=== PATIENT | female | born 1960 | race Caucasian/White ===

== ENCOUNTER → 2025-05-11 08:13 | Outpatient (REF) | payer OTHER, SELFPAY | LOC: HWRAD 08:13 | PROVIDERS: ATTENDING PHYSICIAN Hospitalist; FAMILY PHYSICIAN Family Medicine; REFERRING PHYSICIAN Obstetrics & Gynecology | DX: M81.0 Age-related osteoporosis without current pathological fracture (principal) | CPT/HCPCS: 77080 ==

== ENCOUNTER → 2025-06-10 10:51 | Outpatient (REF) | payer OTHER, SELFPAY | LOC: HWRCS 10:51 | PROVIDERS: ATTENDING PHYSICIAN Internal Medicine Cardiovascular Disease; FAMILY PHYSICIAN Family Medicine | DX: R07.9 Chest pain, unspecified (principal); R73.03 Prediabetes; E78.00 Pure hypercholesterolemia, unspecified | CPT/HCPCS: 78452; 93017; A9500; J2785 ==